=== PATIENT | female | born 1970 ===

== ENCOUNTER 2017-07-31 12:29 | Inpatient (IN) | payer OTHER ==
[2017-07-31] MEDS ORDERED: LORazepam INJ* 2 MG/ML 1 ML VIAL ONE (12:34)
[2017-07-31] MEDS ORDERED: LORazepam INJ* 2 MG/ML 1 ML VIAL IM ONE (12:39)
[2017-07-31] MEDS ORDERED: Propranolol IV* 1 MG/ML 1 ML VIAL IV PUSH ONE (12:47)
[2017-07-31 13:13] LABS: Hematocrit 42 % (35-47); Hemoglobin 13.9 g/dl (12.0-16.0); Mean Corpuscular HGB Conc 34 g/dl (31-36); Mean Corpuscular Hemoglobin 32 pg (27-31); Mean Corpuscular Volume 97 fL (80-97); Mean Platelet Volume 10.2 um3 (7.4-10.4); Platelet Count 180 10^3/ul (150-450); Red Cell Distribution Width 14 % (10.5-15); White Blood Count 6.6 10^3/ul (3.5-10.8)
[2017-07-31 13:25] LABS: EGFR Non-African American 76.5 (>60)
[2017-07-31 13:39] LABS: ABS Basophils 0.1 10^3/ul (0-0.2); ABS Eosinophils 0.7 10^3/ul (0-0.6); ABS Monocytes 0.5 10^3/ul (0-0.8); ABS Neutrophils 2.4 10^3/ul (1.5-7.7); ABS Nucleated RBC 0 10^3/ul; Eosinophil % 10.4 % (0-6); Lymphocyte % 44.9 % (25-47); Nucleated Red Blood Cells % 0.2
[2017-07-31] MEDS ORDERED: Thiamine IV* 100 MG/ML 2 ML VIAL IV ONE (14:15)
[2017-07-31] MEDS: NS 0.9% 1000 ML* 1,000 ML IV SCH (14:48)
--- NOTE | 2017-07-31 15:51 | HP ---
HISTORY AND PHYSICAL: DATE OF ADMISSION: 07/31/17 PRIMARY CARE PHYSICIAN: Patient does not have a primary care physician. REASON FOR ADMISSION: Thyroid medication overdose, suicidal attempt. CHIEF COMPLAINT: Brought in by EMS for suicidal attempt and drug overdose. HISTORY OF PRESENT ILLNESS: The patient is a 46-year-old female with history of depression, hypothyroidism, who was brought in by the EMS for evaluation of drug overdose with 45 tablets of 75 mcg of levothyroxine. The patient apparently had a suicidal attempt, EMS was called by an unidentified male notifying that the patient has consumed 45 tablets of 75 mcg of levothyroxine. The patient was brought in by EMS to the emergency room. The patient was agitated in the emergency room upon arrival and has been repeatedly saying that she has right to and would want to be let to . She was restrained, was given 2 mg of Ativan for sedation. The patient currently is calm at the time of my evaluation. The patient is oriented x4, has flat affect. The patient responds to verbal stimuli by opening eyes, did not want to provide history or talk further. The patient had labs sent from the ED, which was significant for low potassium, probably evidence of mild acidosis with bicarb of 20, anion gap increased at 15. Last thyroid tests available were in October 2016, at which time TSH and free T4 were within normal limits. test was negative. Total creatine kinase was increased at 282. Troponins were within normal limits. EKG showed evidence of sinus tachycardia. She was mildly hyperthermic upon arrival with temperature of 99.2, heart rate of 110 to 114, blood pressure at 128/83 to 117/83. She has received 1 mg IV of propranolol in addition to 2 mg of Ativan. The patient is being admitted to ICU for close monitoring given significant overdose. PAST MEDICAL HISTORY: Obtained from review of medical records. 1. Depression. 2. Hypothyroidism. 3. The patient recently had thyroid biopsy, which showed a benign thyroid nodule. MEDICATIONS AT HOME: The patient is on levothyroxine (Synthroid) tablet 75 mcg daily. Not seemed to be on any medications for depression. ALLERGIES: CLARITHROMYCIN, CODEINE. FAMILY HISTORY: Noncontributory to current complaint. SOCIAL HISTORY: Only obtainable social history is the patient is an every day smoker. The patient is unable to provide any further history at this time. REVIEW OF SYSTEMS: Attempted and unable to obtain. PHYSICAL EXAMINATION GENERAL: The patient is in no apparent distress at this time, not agitated. Opens eyes to verbal stimuli, does not want to contribute to history. HEENT: Pupils equal and reactive to light. Mucous membranes moist. RESPIRATORY: Good air entry bilaterally. No wheezing. CARDIOVASCULAR: JVD is slightly increased. S1 and S2 present, tachycardic. ABDOMEN: Soft, nontender, nondistended. Bowel sounds present. EXTREMITIES: Normal range of motion. No edema. NEUROLOGIC: The patient is alert, awake, oriented x4. No focal deficits. Not cooperative for complete neurological assessment at this time. SKIN: No rash or bruise. DIAGNOSTIC STUDIES/LAB DATA: WBC 6.6, hemoglobin 13.9, hematocrit 42, platelet count 180. Sodium 136, potassium 3.3, chloride 101, bicarb 20, anion gap 15, BUN 7, creatinine 0.81, glucose 131, calcium 8.8. T bili 0.3. LFTs otherwise within normal limits. CK 282. Total protein 7.5. Beta hCG within normal limits. Lactic acid elevated at 6.1. EKG shows evidence of sinus tachycardia. ASSESSMENT AND PLAN: 1. Neuro: The patient was agitated upon arrival in the ED, is sedated on 2 mg of Ativan. She is not in any neurological distress at this time, able to protect airway appropriately. Will use Ativan as needed. 2. Cardiovascular: The patient with overdose of Synthroid tablets, was tachycardic. Blood pressure not significantly elevated, tachycardia improved post Ativan. Will need close monitoring in an intensive care setting given risk for delayed absorption and delayed half life with thyroid and we will need to watch closely for thyroid storm. Will order propranolol as needed. Do not see any indication for propylthiouracil at this time. 3. Respiratory: Able to maintain adequate airway. O2 sat has been around 98% to 100% on room air. No need for intubation at this time. 4. Infectious Disease: No elevation of white count. No suspicion for sepsis. 5. Endocrine: History of hypothyroidism with suicidal attempt and overdose. Apparently might have ingested 45 tablets of 75 mcg of levothyroxine. Poison Control was contacted. The patient is not cooperative at this time for activated charcoal administration. Hemodialysis is not usually very beneficial since thyroid is mostly protein bound; however, would contact Nephrology if need be. Will use propranolol and propylthiouracil if indicated. 6. GI: We will place n.p.o. until mental status is improved. GI prophylaxis. 7. Musculoskeletal: No issues, normal range of motion. We will use SCDs. The patient is on restraints secondary to risk for harm to self. 8. Renal: Will place Veloz to monitor urine output. The patient with elevated lactic acid and possible lactic acidosis and increased anion gap likely from ETOH ingestion also likely in suicidal attempt. Creatine kinase is also increased, donot suspect rhabdomyolysis, however will monitor closely. Urinalysis is pending at this time. 9. Psychosocial: The patient with suicidal attempt with ingestion of Synthroid and ETOH. Will consult Psychiatry when medically stable. Might need inpatient psychiatry placement upon discharge. Placed on 1:1 observation The patient will be closely monitored in the ICU given accidental overdose for cardiovascular changes that are expected. TIME SPENT: Total time spent doing history and physical is 60 minutes. [id number]/CPS #: [id number] MTDD
[2017-07-31] MEDS: Folic Acid IV* 1 MG/0.2 ML SYRINGE IV SCH (15:59)
[2017-07-31] MEDS: Propranolol TAB* 10 MG PO SCH (17:04)
[2017-07-31 17:21] LABS: Urine Appearance Clear; Urine Blood Negative (Negative); Urine Color Straw; Urine Ketones Negative (Negative); Urine Protein Negative (Negative); Urine Specific Gravity 1.004 (1.010-1.030); Urine Urobilinogen Negative (Negative)
--- NOTE | 2017-07-31 18:25 | ED ---
Sheri Carrizales Jade, scribed for Yousif Mir MD on 07/31/17 at 1259 . Substance Abuse/Use - HPI Summary HPI Summary: Pt is a 46 y/o female BIBA s/p Levothyroxine overdose. An anonymous male called EMS. Pt states she intentionally consumed a bottle and a half of Levothyroxine in a suicide attempt. EMS found one empty bottle of 30 75 mcg tablets of Levothyroxine, so she took an estimated 45 75 mcg tablets. Pt is not sharing any information, including when she took the medications. - History Of Current Complaint Chief Complaint: EDOverdose Stated Complaint: OVERDOSE Time Seen by Provider: 07/31/17 12:37 Hx Obtained From: Patient, EMS Hx Last Menstrual Period: had procedure hasn't had period in 5 years Ingestion History: Type/Name Of Drug - Levothyroxine, Amount Ingested - Estimated 45 75 mcg tablets Character: Other - Agitated, non-cooperative Related Hx: Suicidal: Gesture - Allergies/Home Medications Allergies/Adverse Reactions: Allergies Allergy/AdvReac Type Severity Reaction Status Date / Time clarithromycin Allergy Intermediate severe Verified 07/31/17 13:58 vomiting codeine Allergy Mild Hives Verified 07/31/17 13:58 Home Medications: Home Medications Levothyroxine TAB* [Synthroid TAB*] 75 mcg PO DAILY 07/31/17 [History Confirmed 07/31/17] PMH/Surg Hx/FS Hx/Imm Hx Endocrine/Hematology History: Reports: Hx Thyroid Disease Denies: Hx Diabetes Respiratory History: Denies: Hx Asthma Psychiatric History: Reports: Hx Depression Infectious Disease History: No Infectious Disease History: Denies: Hx Clostridium Difficile, Hx Hepatitis, Hx Human Immunodeficiency Virus (HIV), Hx Shingles, Hx Tuberculosis, Traveled Outside the [place] in Last 30 Days - Family History Known Family History: Positive: Other - Reviewed and non-contributory - Social History Alcohol Use: Rare Substance Use Type: Reports: None Smoking Status (MU): Light Every Day Tobacco Smoker Review of Systems Negative: Fever Positive: Other - Agitated All Other Systems Reviewed And Are Negative: Yes Physical Exam - Summary Physical Exam Summary: General: well-appearing, no pain distress Skin: warm, color reflects adequate perfusion, dry Head: normal Eyes: EOMI, COLE ENT: normal Neck: supple, nontender Respiratory: CTA, breath sounds present Cardiovascular: Tachycardic Abdomen: soft, nontender Bowel: present Musculoskeletal: normal, strength/ROM intact Neurological: sensory/motor intact, A&O x3 Psychological: Agitated, non-cooperative. Triage Information Reviewed: Yes Vital Signs On Initial Exam: Initial Vitals Temp Pulse Resp BP Pulse Ox 99.2 F 108 20 127/73 96 07/31/17 12:42 07/31/17 12:42 07/31/17 12:42 07/31/17 12:42 07/31/17 12:42 Vital Signs Reviewed: Yes Diagnostics - Vital Signs Vital Signs Temp Pulse Resp BP Pulse Ox 07/31/17 12:51 16 07/31/17 12:42 99.2 F 108 20 127/73 96 - Laboratory Lab Results: Lab Results 07/31/17 07/31/17 07/31/17 Range/Units 12:55 12:55 12:55 WBC 6.6 (3.5-10.8) 10^3/ul RBC 4.30 (4.00-5.40) 10^6/ul Hgb 13.9 (12.0-16.0) g/dl Hct 42 (35-47) % MCV 97 (80-97) fL MCH 32 H (27-31) pg MCHC 34 (31-36) g/dl RDW 14 (10.5-15) % Plt Count 180 (150-450) 10^3/ul MPV 10.2 (7.4-10.4) um3 Neut % (Auto) 36.4 L (38-83) % Lymph % (Auto) 44.9 (25-47) % [place] % (Auto) 7.2 H (0-7) % Eos % (Auto) 10.4 H (0-6) % Baso % (Auto) 1.1 (0-2) % Absolute Neuts (auto) 2.4 (1.5-7.7) 10^3/ul Absolute Lymphs (auto) 3.0 (1.0-4.8) 10^3/ul Absolute Monos (auto) 0.5 (0-0.8) 10^3/ul Absolute Eos (auto) 0.7 H (0-0.6) 10^3/ul Absolute Basos (auto) 0.1 (0-0.2) 10^3/ul Absolute Nucleated RBC 0 10^3/ul Nucleated RBC % 0.2 Sodium 136 (135-145) mmol/L Potassium 3.3 L (3.5-5.0) mmol/L Chloride 101 (101-111) mmol/L Carbon Dioxide 20 L (22-32) mmol/L Anion Gap 15 H (2-11) mmol/L BUN 7 (6-24) mg/dL Creatinine 0.81 (0.51-0.95) mg/dL Est GFR ( Amer) 98.3 (>60) Est GFR (Non-Af Amer) 76.5 (>60) BUN/Creatinine Ratio 8.6 (8-20) Glucose 131 H (70-100) mg/dL Lactic Acid 6.1 H* (0.5-2.0) mmol/L Calcium 8.8 (8.6-10.3) mg/dL Total Bilirubin 0.30 (0.2-1.0) mg/dL AST 34 (13-39) U/L ALT 26 (7-52) U/L Alkaline Phosphatase 66 (34-104) U/L Total Creatine Kinase 282 H (10-223) U/L Troponin I 0.01 (<0.04) ng/mL Total Protein 7.5 (6.4-8.9) g/dL Albumin 4.3 (3.2-5.2) g/dL Globulin 3.2 (2-4) g/dL Albumin/Globulin Ratio 1.3 (1-3) TSH 1.62 (0.34-5.60) mcIU/mL Thyroxine (T4) 13.59 H (6.09-12.23) mcg/mL Free T3 3.90 (2.5-3.9) pg/mL Beta HCG, Quant < 0.60 mIU/mL Salicylates < 2.50 (<30) mg/dL Acetaminophen < 15 mcg/mL Serum Alcohol 222 H (<10) mg/dL Result Diagrams: 07/31/17 12:55 07/31/17 14:56 Lab Statement: Any lab studies that have been ordered have been reviewed, and results considered in the medical decision making process. - EKG 12:40 Cardiac Rate: Tachycardia - 108 bpm EKG Rhythm: Sinus Rhythm EKG Interpretation: Minimal ST depression in inferior leads. No ectopy. Re-Evaluation - Re-Evaluation First Eval Re-Evaluation Time: 13:02 Change: Unchanged Comment: Pt is now more tachycardic. Pt states she feels fine, wants to be alone and to go home. She repeats that it's her right to kill herself if she wants to. Pt states she does not want a mental health evaluation. Course/Dx - Course Course Of Treatment: POISON CONTROL CONSULTED. ADMIT ICU. - Diagnoses Provider Diagnoses: Levothyroxine sodium overdose, Mental health problem - Critical Care Time Critical Care Time: 30-74 min Discharge - Sign-Out/Discharge Documenting (check all that apply): Discharge/Admit/Transfer - Admit Signing out patient TO: Dior Francois - Discharge Plan Condition: Stable Disposition: ADMITTED TO [facility] - Billing Disposition and Condition Condition: STABLE Disposition: Admitted to [facility] The documentation as recorded by the Sheri duong Jade accurately reflects the service I personally performed and the decisions made by me, Yousif Mir MD.
[2017-07-31] MEDS: LORazepam INJ* 2 MG/ML 1 ML VIAL IV PUSH PRN (21:37)
[2017-08-01] MEDS: Propranolol TAB* 10 MG PO SCH ×2 (00:38→16:39)
[2017-08-01] MEDS: NS 0.9% 1000 ML* 1,000 ML IV SCH ×3 (00:56→21:39)
[2017-08-01] MEDS: LORazepam INJ* 2 MG/ML 1 ML VIAL IV PUSH PRN ×2 (05:02→14:45)
[2017-08-01 05:29] LABS: EGFR Non-African American 86.2 (>60)
[2017-08-01] MEDS ORDERED: Dexamethasone TAB* 4 MG PO SCH (09:00)
[2017-08-01] MEDS ORDERED: Propranolol TAB* 10 MG PO PRN (09:49)
[2017-08-01] MEDS: Cholestyramine Resin* 4 GM POWDER PO SCH ×2 (12:42→17:20)
--- NOTE | 2017-08-01 13:52 | PN ---
Date of Service: 08/01/17 Critical Care Services: 46 y/o female admitted yesterday with intentional overdose of levothyroxine (45 tablets at 75 mcg/tablet) - has been asymptomatic since admission. patient has hx depression, and admits to suicide intent for the OD. Vital Signs: Temp Pulse Resp BP SpO2 FiO2 99.5 F 70 18 116/77 97 Physical Exam: Gen:Alert, oriented, and no distress. HEENT:No exophthalmos Cardiac: No tachycardia Extremities: No tremor Skin: No diaphoresis Fluid Balance (Past 24 Hours): 08/01/17 06:59 Intake Total 1501 Output Total 1400 Balance +101 Weight 166 lb oz Intake: IV Fluids 1501 NS (0.9%) 1501 Oral Output: Urine Veloz 1400 Labs: 07/31/17 07/31/17 07/31/17 15:40 17:09 17:09 Urine Color Straw Urine Appearance Clear Urine pH 5.0 Ur Specific [place] 1.004 L Urine Protein Negative Urine Ketones Negative Urine Blood Negative Urine Nitrate Negative Urine Bilirubin Negative Urine Urobilinogen Negative Ur Leukocyte Esterase Negative Urine Glucose Negative Urine Opiates Screen None detected Ur Barbiturates Screen None detected Ur Phencyclidine Scrn None detected Ur Amphetamines Screen None detected U Benzodiazepines Scrn None detected Urine Cocaine Screen None detected U Cannabinoids Screen None detected 07/31/17 07/31/17 08/01/17 17:09 23:45 05:00 VBG pH VBG pCO2 VBG pO2 VBG HCO3 VBG O2 Saturation VBG Base Excess Sodium 140 Potassium 4.1 Chloride 107 Carbon Dioxide 26 Anion Gap 7 BUN 8 Creatinine 0.73 Est GFR ( Amer) 110.9 Est GFR (Non-Af Amer) 86.2 BUN/Creatinine Ratio 11.0 Glucose 102 H POC Glucose (mg/dL) 99 Lactic Acid Calcium 8.2 L Total Creatine Kinase 361 H Troponin I 0.01 Studies: None today Nutrition: Advanced to unrestricted diet today Impression: No clinical sequelae from levothyroxine OD - patient clinically stable for psych evaluation. Plan: Consult sent for psychiatric evaluation.
[2017-08-01] MEDS ORDERED: LORazepam INJ* 2 MG/ML 1 ML VIAL IV PUSH PRN (15:02)
[2017-08-01] MEDS: Folic Acid IV* 1 MG/0.2 ML SYRINGE IV SCH (16:39)
--- NOTE | 2017-08-01 17:35 | CONS ---
CONSULTATION REPORT: DATE OF CONSULT: 08/01/17 SUPERVISING PSYCHIATRIST: Luis Enrique Campbell MD PRIMARY CARE PROVIDER: [facility] in [place]. ATTENDING PHYSICIAN: Dr. Carter. CONSULTING PROVIDER: Naomie Barcenas NP REASON FOR CONSULT: Psychiatry was consulted as the patient had an intentional overdose attempt. CHIEF COMPLAINT: "My daughter is gone." HISTORY OF PRESENT ILLNESS: Rachel is a 46-year-old female domiciled, employed. She reports that she received notification from [facility] department on 07/31/17 that her 12-year-old daughter, Leonel, is now living with the father in [place]. The patient reports that things in her life were stable and going well prior to 07/06/17. The patient states on 07/06/17, her daughter had recently been on a trip with her dad to [place] and then decided to live with him. The patient states she has not had contact with her daughter since 07/06/17. The patient impulsively took 45 tablets of 75 mcg levothyroxine that is prescribed to her. She apparently had called her 22-year- old son who notified police. The patient states "I didn't think he would, I hoped he wouldn't." She states she fell asleep and the next thing she recalled was being transported to the hospital via EMS. She presented to the emergency department, was agitated and repeatedly saying that she has the right to and would want to be left to . The patient was restrained and given 2 mg of Ativan for sedation. She has since been admitted to ICU for telemetry overflow while monitoring. Today, the patient presents as dysphoric with psychomotor retardation. She endorses depressed mood, anhedonia, hopelessness, and apathy. The patient denies need to be hospitalized and continues to assert to be allowed to go home. She cites employment and finances as reasons that she has to go home. This fiction writer inquired about collateral information and the patient called her boyfriend, Vel with whom she has lived for 8 years. While on the phone, she was notified by Vel that he has placed an order of protection and is packing all of her belongings, thus rendering the patient homeless. The patient was understandably agitated and tearful. ICU staff were notified and the patient was given lorazepam IV with good effect. PAST PSYCHIATRIC HISTORY: The patient reports being on PINS and mandated to attend counseling when she was 16 years old. She states approximately 10 years ago when she was her second , she took an antidepressant, but does not recall which one. The patient denies history of abuse. Her parents when she was 12 years old. She was in foster care for 1 year at age 16. PAST MEDICAL HISTORY: Hypothyroidism, thyroid biopsy recently which showed a benign thyroid nodule. ALLERGIES: CLARITHROMYCIN and CODEINE. Height 5 feet 6, weight 166 pounds. FAMILY PSYCHIATRIC HISTORY: Unable to obtain at this time. SOCIAL HISTORY: The patient reports she grew up in [place], graduated high school from [employer]. She states she attended 2 years of community college in nursing, but did not obtain a degree. She has been and twice. From her first , she has a 22-year-old son, who lives in [place] and from her second , she has a 12-year-old daughter named Leonel as mentioned above. 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 She reports occasional alcohol use. She denies marijuana or cigarettes; however, her H and P from admitting physician denotes every day smoker. As stated above, the patient was living with her boyfriend, Vel, for the past 8 years. She learned of an order of protection while on the phone with him in this fiction writer's presence. MENTAL STATUS EXAM: The patient is dysphoric and tearful. She is initially lying in bed with psychomotor retardation and she is increasingly upset. She attempts to remove her EKG leads and leaves the room. She is evasive, apathetic , alert and oriented x3. Her memory is 2/3. She does not recall recent events. Speech is soft and monotone. Mood is depressed. Affect is tearful and dysphoric, congruent. Thought process is circumstantial and impoverished at times. Thought content: She had a partially executed plan of suicide. Insight is poor. Judgment is poor. DIAGNOSES: Major depressive disorder, adjustment disorder, hypothyroidism, status post overdose attempt on thyroid medication. ASSESSMENT AND PLAN: The patient is a 46-year-old woman with recent disruption in family and living situation. She impulsively took overdose of levothyroxine in an attempt to suicide. The patient is denying need for continued hospitalization and demonstrates poor insight and judgment. She merits hospitalization for continued stabilization and safety. We will admit her to the mental health unit under 9.39 status pending bed availability. I have discussed the above with the attending physician, Dr. Carter and the patient's primary nurse, Sylvie. NAOMIE BARCENAS, IT PROJECT MANAGER [id number]/CPS #: [id number] TIFFANI
[2017-08-02] MEDS: Cholestyramine Resin* 4 GM POWDER PO SCH ×3 (00:30→11:19)
[2017-08-02] MEDS: NS 0.9% 1000 ML* 1,000 ML IV SCH ×2 (07:44→18:11)
--- NOTE | 2017-08-02 12:53 | PN ---
Subjective Date of Service: 08/02/17 Interval History: Pt got upset and tearful when she was notified about need to stay in MHU denies pain, admits to poor appetite, Objective Active Medications: Cholestyramine Resin (Questran*) 4 gm PO Q6H [facility] Stop: 08/03/17 12:00 Last Admin: 08/02/17 11:19 Dose: 4 gm Heparin Sodium (Porcine) (Heparin Flush Picc/Ml/Cvc(*)) 1 - 3 ml FLUSH 0600, 1800 [facility] PRN Reason: Protocol Last Admin: 08/02/17 05:59 Dose: Not Given Sodium Chloride (Ns 0.9% 1000 Ml*) 1,000 mls @ 100 mls/hr IV PER RATE MARGO Last Admin: 08/02/17 07:44 Dose: 100 mls/hr Lorazepam (Ativan Inj*) 1 mg IV PUSH Q6H PRN PRN Reason: ANXIETY Last Admin: 08/01/17 14:45 Dose: 1 mg Lorazepam (Ativan Inj*) 2 mg IV PUSH Q4H PRN PRN Reason: AGITATION Propranolol HCl (Inderal Tab*) 10 mg PO TID PRN PRN Reason: HEART RATE/PULSE Vital Signs - 8 hr 08/02/17 08/02/17 08/02/17 08:00 08:01 12:19 Temperature 98.2 F 98.1 F Pulse Rate 88 87 Respiratory 16 16 16 Rate Blood Pressure 109/61 121/81 (mmHg) O2 Sat by Pulse 96 99 Oximetry Oxygen Devices in Use Now: None Appearance: 46 yo F in nAD, aAOx3, withdrawn Eyes: No Scleral Icterus, PERRLA Ears/Nose/Mouth/Throat: NL Teeth, Lips, Gums, Mucous Membranes Moist Neck: NL Appearance and Movements; NL JVP, Trachea Midline Respiratory: Symmetrical Chest Expansion and Respiratory Effort, Clear to Auscultation Cardiovascular: NL Sounds; No Murmurs; No JVD, RRR Abdominal: NL Sounds; No Tenderness; No Distention, No Hepatosplenomegaly Lymphatic: No Cervical Adenopathy Extremities: No Edema, No Clubbing, Cyanosis Skin: No Rash or Ulcers, No Nodules or Sclerosis Neurological: Alert and Oriented x 3, NL Muscle Strength and Tone Result Diagrams: 07/31/17 12:55 08/01/17 05:00 Additional Lab and Data: Lab Results 07/31/17 07/31/17 07/31/17 Range/Units 12:55 12:55 12:55 WBC 6.6 (3.5-10.8) 10^3/ul RBC 4.30 (4.00-5.40) 10^6/ul Hgb 13.9 (12.0-16.0) g/dl Hct 42 (35-47) % MCV 97 (80-97) fL MCH 32 H (27-31) pg MCHC 34 (31-36) g/dl RDW 14 (10.5-15) % Plt Count 180 (150-450) 10^3/ul MPV 10.2 (7.4-10.4) um3 Neut % (Auto) 36.4 L (38-83) % Lymph % (Auto) 44.9 (25-47) % [place] % (Auto) 7.2 H (0-7) % Eos % (Auto) 10.4 H (0-6) % Baso % (Auto) 1.1 (0-2) % Absolute Neuts (auto) 2.4 (1.5-7.7) 10^3/ul Absolute Lymphs (auto) 3.0 (1.0-4.8) 10^3/ul Absolute Monos (auto) 0.5 (0-0.8) 10^3/ul Absolute Eos (auto) 0.7 H (0-0.6) 10^3/ul Absolute Basos (auto) 0.1 (0-0.2) 10^3/ul Absolute Nucleated RBC 0 10^3/ul Nucleated RBC % 0.2 Sodium 136 (135-145) mmol/L Potassium 3.3 L (3.5-5.0) mmol/L Chloride 101 (101-111) mmol/L Carbon Dioxide 20 L (22-32) mmol/L Anion Gap 15 H (2-11) mmol/L BUN 7 (6-24) mg/dL Creatinine 0.81 (0.51-0.95) mg/dL Est GFR ( Amer) 98.3 (>60) Est GFR (Non-Af Amer) 76.5 (>60) BUN/Creatinine Ratio 8.6 (8-20) Glucose 131 H (70-100) mg/dL Lactic Acid 6.1 H* (0.5-2.0) mmol/L Calcium 8.8 (8.6-10.3) mg/dL Total Bilirubin 0.30 (0.2-1.0) mg/dL AST 34 (13-39) U/L ALT 26 (7-52) U/L Alkaline Phosphatase 66 (34-104) U/L Total Creatine Kinase 282 H (10-223) U/L Troponin I 0.01 (<0.04) ng/mL Total Protein 7.5 (6.4-8.9) g/dL Albumin 4.3 (3.2-5.2) g/dL Globulin 3.2 (2-4) g/dL Albumin/Globulin Ratio 1.3 (1-3) TSH 1.62 (0.34-5.60) mcIU/mL Thyroxine (T4) 13.59 H (6.09-12.23) mcg/mL Free T3 3.90 (2.5-3.9) pg/mL Beta HCG, Quant < 0.60 mIU/mL Salicylates < 2.50 (<30) mg/dL Acetaminophen < 15 mcg/mL Serum Alcohol 222 H (<10) mg/dL Microbiology and Other Data: Microbiology 07/31/17 14:56 Nasal Screen MRSA (PCR)(HITESH) - Final Nasal Mrsa Not Detected Assess/Plan/Problems-Billing Assessment: 46 yo F with h/o SI and hypothyroidism admitted after an intentional Synthroid overdose - Patient Problems (1) Levothyroxine sodium overdose Comment: no signs or symptoms of hemodynamic instability. As per d/w poison control center symptoms of irritability , tachycardia may start 2-3 weeks from now and pt should have frequent f/u as outpatient in regards to that. (2) DVT prophylaxis Comment: ambulatory, low risk Status and Disposition: inpatient, awaiting a bed in MHU, medically ready for transfer
--- NOTE | 2017-08-02 16:11 | PN ---
Subjective - Subjective Date of Service: 08/02/17 Service Type: 85873 Hosp care 25 min moderate complexity Subjective: Patient presents as dysphoric and irritable. She minimizes recent attempt and current stressors. She continues to deny need for mental health treatment and states desire to be discharged home. She states that being here and "cooped up" is making matters worse. Patient lacks supports or housing at this time. She declines offer of medications for depression and states "I'm sure you will keep me drugged up." Objective - Appearance Appearance: Well Developed/Nourished Dysmorphic Features: Yes Hygiene: Normal Grooming: Disheveled - Behavior Psychomotor Activities: Normal Exhibits Abnormal Movement: No - Attitude and Relatedness Attitude and Relatedness: Irritable Eye Contact: Fair - Speech Quality: Unpressured Latencies: Normal Quantity: Terse - Mood Patient's Decription of Mood: "Fine" - Affect Observed Affect: Depressed Affect Consistent with: Dysphoria - Thought Process Patient's Thought Process: Circumstantial Thought Content: Yes Passive Wish, No Suicidal Planning, No Homicidal Ideation, No Paranoid Ideation - Sensorium Experiencing Hallucinations: No, Sensorium is Clear Type of Hallucinations: Visual: No, Auditory: No, Command: No - Level of Consciousness Level of Consciousness: Alert Orientation: Yes Intact, Yes Orientated to Time, Yes Orientated to Place, Yes Orientated to Person - Impulse Control Impulse Control: Poor - Insight and Judgement Insight and Judgement: Poor Assessment - Assessment Merits Inpatient Hospitalization: For Immediate Safety, For Stabilization Inpatient DSM-V Dx: F32.2 Clinical Impression: 46YO female with no known psychiatric history who presented to ED via EMS after partially executed suicide. She merits hospitalization for immediate safety and stabilization. Plan - Plan Treatment Plan: Name: JOSH GARZON Birthdate: 1970 [id number] 9.39 admit pending bed availability. Continued Medication Management: Consider Medication Medications: Current Medications Heparin Sodium (Porcine) (Heparin Flush Picc/Ml/Cvc(*)) 1 - 3 ml FLUSH 0600, 1800 [facility] PRN Reason: Protocol Last Admin: 08/02/17 05:59 Dose: Not Given Sodium Chloride (Ns 0.9% 1000 Ml*) 1,000 mls @ 100 mls/hr IV PER RATE [facility] Last Admin: 08/02/17 07:44 Dose: 100 mls/hr Lorazepam (Ativan Inj*) 1 mg IV PUSH Q6H PRN PRN Reason: ANXIETY Last Admin: 08/01/17 14:45 Dose: 1 mg Lorazepam (Ativan Inj*) 2 mg IV PUSH Q4H PRN PRN Reason: AGITATION Propranolol HCl (Inderal Tab*) 10 mg PO TID PRN PRN Reason: HEART RATE/PULSE
[2017-08-02 20:14] VITALS: BP 99/57
--- NOTE | 2017-08-02 20:52 | PN ---
Progress Note - Progress Note Date of Service: 08/02/17 Note: Paperwork signed for patient to be transferred to inpatient psych.
--- NOTE | 2017-08-04 08:09 | DS ---
CC: Dr. Lynn * DISCHARGE SUMMARY: DATE OF ADMISSION: 07/31/17 DATE OF DISCHARGE: 08/02/17 PRIMARY CARE PROVIDER: None. DISPOSITION: The patient is being transferred to mental health unit at our facility. DISCHARGE DIAGNOSIS: Levothyroxine overdose due to suicidal attempt. SECONDARY DIAGNOSES: 1. History of depression. 2. History of hypothyroidism. 3. History of benign thyroid nodule. MEDICATIONS AT DISCHARGE: Lorazepam 1 mg on a p.r.n. basis for anxiety. The patient is to restart her Synthroid likely in approximately 3 to 4 weeks depending on her thyroid hormone levels. During the patient's current hospital stay, the patient was informed that her symptoms of levothyroxine overdose can occur up to 3 to 4 weeks after the ingestion. She is to notify her primary care provider if she becomes more anxious, "jittery," notices fast heartbeat or palpitations, or any other worrisome symptoms. LABORATORY DATA DURING THE HOSPITAL STAY: Included: On 07/31/17, white blood cell count 6.6, hemoglobin of 13.9, hematocrit of 42, and platelets of 180. On 08/01/17, sodium of 140, potassium 4.1, chloride 107, carbon dioxide 26, BUN 8, creatinine 0.73. Total CPK is obtained, last one 07/31/17 was 361. Troponin performed during the patient's hospital stay was negative. At admission, the patient's TSH was 1.62, total T4 was 13.5, free T3 3.9. CONSULTATIONS DURING THE HOSPITAL STAY: Naomie Foreman NP, from Psychiatry. HOSPITALIZATION COURSE: Rachel Copeland is a 46-year-old female with history of depression, who overdosed on 45 tablets of her Synthroid medication, which is 75 mcg each. She presented to the hospital and was admitted to the intensive care unit for observation. She was noted to have basically no symptoms of thyrotoxicosis at that point. She did receive a dose of 2 of lorazepam for anxiety that was likely related to her psychiatric issues. She was seen by Psychiatry in consultation, who recommended mental health evaluation and an involuntary admission after medical clearance. I spoke with poison control center, who informed us that levothyroxine overdose symptoms can occur anywhere from 2 weeks after overdose to 4 weeks after overdose and the patient needs to be alert that when those symptoms occur that she should notify her primary care provider and be seen. Her levothyroxine supplementation in the future will depend on her further clinical course. PHYSICAL EXAM AT THE TIME OF DISCHARGE: Please see daily progress note. [id number]/[facility] #: [id number] MTDD
== END 2017-08-02 21:30 | DRG 918 ==
LOC: ED 12:29 → ICU 13:44 → MEDTELE 08-01 16:31
PROVIDERS: ADMIT Internal Medicine; ATTEND Pediatrics
PROC: 02HV33Z Insertion of Infusion Device into Superior Vena Cava, Percutaneous Approach (ICD-10-PCS; principal; 2017-07-31)
DX: T38.1X2A Poisoning by thyroid hormones and substitutes, intentional self-harm, initial encounter (principal); F32.2 Major depressive disorder, single episode, severe without psychotic features; E03.9 Hypothyroidism, unspecified; F17.210 Nicotine dependence, cigarettes, uncomplicated; F43.20 Adjustment disorder, unspecified; Y92.9 Unspecified place or not applicable; Z79.899 Other long term (current) drug therapy; Z88.5 Allergy status to narcotic agent; Z88.8 Allergy status to other drugs, medicaments and biological substances
CPT/HCPCS: 36415; 80048; 80053; 80307; 80320; 80329; 81003; 82550; 82803; 83605; 84436; 84443; 84481; 84484; 84702; 85025; 87641; 93005; 99285; 99406; A9270-GY; G0480; J1800; J2060; J3411